=== PATIENT | male | born 1970 | race Caucasian/White ===

== ENCOUNTER 2019-02-05 01:09 | Outpatient (CLI) | payer OTHER, SELFPAY ==
--- NOTE | 2019-02-05 08:30 | DI.US_ITS ---
SYMPTOMS/DIAGNOSIS: ABD PAIN, PAIN RT TESTICLE, UPPER ABD HERNIA, H/O HERNIA REPAIR 2014, TENDERNESS BELOW XIPHOID PROCESS ABDOMINAL ULTRASOUND: The liver is unremarkable in appearance. No evidence of cholelithiasis or biliary dilatation. The pancreas is unremarkable as visualized. The kidneys appear normal with no evidence of hydronephrosis or nephrolithiasis. The abdominal aorta and IVC are of normal diameter as visualized. There is apparently clinical question of an upper abdominal ventral hernia. No gross hernia identified by ultrasound criteria. If there is a high clinical suspicion of ventral hernia, additional evaluation with CT could be considered.
== END 2019-02-05 01:29 ==
PROVIDERS: PCP Preventive Medicine Public Health & General Preventive Medicine
DX: R10.9 Unspecified abdominal pain (principal); N50.811 Right testicular pain; Z98.890 Other specified postprocedural states
CPT/HCPCS: 76700